=== PATIENT | female | born 1940 | race Caucasian/White ===

== ENCOUNTER 2017-11-25 18:19 | Emergency (ER) | payer MEDICARE, BC ==
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
== END 2017-11-25 20:58 | disposition home or self-care (01) ==
LOC: ERS 18:19
DX: S43.402A Unspecified sprain of left shoulder joint, initial encounter (principal); E78.5 Hyperlipidemia, unspecified; V49.9XXA Car occupant (driver) (passenger) injured in unspecified traffic accident, initial encounter

== ENCOUNTER 2018-02-10 09:35 | Outpatient (CLI) | payer MEDICARE, BC | END 2018-02-10 09:36 | disposition home or self-care (01) | LOC: BICMRI 09:35 | PROVIDERS: ATTEND Orthopaedic Surgery | DX: M25.512 Pain in left shoulder (principal); M75.102 Unspecified rotator cuff tear or rupture of left shoulder, not specified as traumatic ==

== ENCOUNTER 2020-08-17 07:25 | Outpatient (CLI) | payer MEDICARE, BC ==
--- NOTE | 2020-08-17 08:26 | RAD ---
XR Lumbar Spine 2 Or 3 View: 08/17/2020 8:07 AM INDICATION: Osteoarthritis COMPARISON: None FINDINGS: Fracture: None. Alignment: There is grade 2 anterolisthesis of L4 and L5 and grade 1 anterolisthesis of L5 on S1. Th ere is slight leftward curvature of the thoracolumbar junction. Degenerative Change: There is advanced disc degenerative disease at L4-5 and L5-S1. There is advance d facet osteoarthrosis at L4-5 and L5-S1. There is moderate facet osteoarthrosis at L2-3 and L3-4. There is advanced right SI joint osteoarthrosis. There is advanced chronic osteitis pubis. Bone Mineralization:There is diffuse osteopenia. Soft tissues: Surgical clips are seen within the right upper quadrant. There are severe vascular calc ifications seen involving the visualized vasculature. IMPRESSION: Severe spondylosis of the lumbar spine.
--- NOTE | 2020-08-17 08:33 | ULT ---
Renal ultrasound with renal Doppler evaluation CLINICAL INDICATION: Chronic renal failure, renal cysts. COMPARISON: 07/25/[address] abdomen and pelvis on 02/15/2014 FINDINGS: Right kidney: There are 2 anechoic structures seen in the inferior pole right kidney largest measurin g 4.8 cm and smaller anechoic structure measuring 2.3 cm which demonstrate sonographic characteristics most compatible with cysts. There is a smaller anechoic structure seen within the mid portion right kidney which also demonstrates sonographic characteristics compatible with a cyst. The cysts are larger in size compared to study in 2013. No hydronephrosis or renal calculus is seen o n the right.The right kidney measures 9 cm x 5.2 cm. Left kidney: There are 3 anechoic structure seen involving the left kidney, two at the junction of th e midportion and inferior pole left kidney with a exophytic anechoic structure in the inferior pole left kidney. The largest cyst inferior pole measures 7 cm x 5.8 cm x 2.8 cm with second largest cyst at the junction midportion inferior pole left kidney measuring 5.2 cm. The cysts are larger in size compared to study in 2013. No renal calculus or hydronephrosis is seen on the left.The left kidney me asures 8.8 cm x 5 cm. Urinary bladder: Within normal limits for degree of distention. Urinary bladder volume is 96.6 mL. Renal Doppler evaluation with color flow and spectral analysis: The peak systolic velocity in the abdominal aorta is 81.7 cm/s. Peak systolic velocity in the right r enal artery is 138 cm/s and on the left renal artery peak systolic velocity is 118 cm/s. The right renal to aorta ratio is 1.69 and the left renal artery to aorta ratio is 1.44. A normal renal artery to aorta ratio is less than 3. Resistive index in the right renal arcuate artery is 0.72, and the left renal arcuate artery resistiv e index is 0.64. Normal resistive indices are less than 0.7. IMPRESSION: 1. No evidence of hydronephrosis. 2. Bilateral renal cysts. 3. Normal renal artery to aorta ratios as well as normal resistive index in the left renal arcuate ar teries; however, there is a borderline increased resistive index in the right renal arcuate artery.
== END 2020-08-17 07:26 | disposition home or self-care (01) ==
LOC: BICULT 07:25
PROVIDERS: ATTEND Internal Medicine Nephrology
DX: I12.9 Hypertensive chronic kidney disease with stage 1 through stage 4 chronic kidney disease, or unspecified chronic kidney disease (principal); E11.22 Type 2 diabetes mellitus with diabetic chronic kidney disease; N18.3 Chronic kidney disease, stage 3 (moderate); D63.1 Anemia in chronic kidney disease; I25.10 Atherosclerotic heart disease of native coronary artery without angina pectoris; I73.9 Peripheral vascular disease, unspecified; E78.5 Hyperlipidemia, unspecified; M19.90 Unspecified osteoarthritis, unspecified site; M47.816 Spondylosis without myelopathy or radiculopathy, lumbar region; N28.1 Cyst of kidney, acquired
CPT/HCPCS: 72100; 76770; 93975

== ENCOUNTER 2021-08-14 14:04 | Outpatient (CLI) | payer MEDICARE, BC | END 2021-08-14 14:05 | disposition home or self-care (01) | LOC: BICRAD 14:04 | PROVIDERS: ATTEND Family Medicine | DX: M25.562 Pain in left knee (principal) ==

== ENCOUNTER 2022-07-21 09:24 | Outpatient (CLI) | payer MEDICARE, BC | END 2022-07-21 09:25 | disposition home or self-care (01) | LOC: BICMAMMO 09:24 | PROVIDERS: ATTEND Family Medicine | DX: Z12.31 Encounter for screening mammogram for malignant neoplasm of breast (principal); Z80.3 Family history of malignant neoplasm of breast | CPT/HCPCS: 77063; 77067 ==

== ENCOUNTER 2023-08-04 13:07 | Outpatient (CLI) | payer MEDICARE, BC | END 2023-08-04 13:08 | disposition home or self-care (01) | LOC: BICMAMMO 13:07 | PROVIDERS: ATTEND Family Medicine | DX: Z12.31 Encounter for screening mammogram for malignant neoplasm of breast (principal); Z80.3 Family history of malignant neoplasm of breast | CPT/HCPCS: 77063; 77067 ==

== ENCOUNTER 2023-12-18 14:24 | Outpatient (CLI) | payer MEDICARE | END 2023-12-18 14:25 | disposition home or self-care (01) | LOC: ULT 14:24 | PROVIDERS: ATTEND Family Medicine | DX: I25.10 Atherosclerotic heart disease of native coronary artery without angina pectoris (principal); M79.89 Other specified soft tissue disorders ==

== ENCOUNTER 2025-08-09 09:33 | Outpatient (CLI) | payer MEDICARE | END 2025-08-09 09:34 | disposition home or self-care (01) | LOC: BICMAMMO 09:33 | PROVIDERS: ATTEND Family Medicine | DX: Z12.31 Encounter for screening mammogram for malignant neoplasm of breast (principal); Z80.3 Family history of malignant neoplasm of breast | CPT/HCPCS: 77063; 77067 ==